=== PATIENT | male | born 1995 | race Two or more races ===

== ENCOUNTER → 2019-11-13 | Emergency (ER) | payer SELFPAY ==
[~2019-11-13] VITALS: Ht 170.2 cm; Wt 68.0 kg
[2019-11-13 13:23] VITALS: BP 120/75
== END | disposition left against medical advice (07) ==
LOC: ER 13:20
DX: M79.641 Pain in right hand (principal); Z53.21 Procedure and treatment not carried out due to patient leaving prior to being seen by health care provider

== ENCOUNTER 2019-11-15 15:35 | Emergency (ER) | payer SELFPAY ==
[~2019-11-15] VITALS: Ht 170.2 cm; Wt 72.6 kg
[2019-11-15 16:05] VITALS: BP 118/84
[2019-11-15] MEDS ORDERED: LIDOCAINE 1% HCL (LOCAL ANESTH.) INJ 20ML MDV IJ ONE (16:30)
== END 2019-11-15 16:34 | disposition home or self-care (01) ==
LOC: ER 15:35
DX: S60.521A Blister (nonthermal) of right hand, initial encounter (principal); F17.210 Nicotine dependence, cigarettes, uncomplicated; W57.XXXA Bitten or stung by nonvenomous insect and other nonvenomous arthropods, initial encounter; Y93.89 Activity, other specified; Y92.89 Other specified places as the place of occurrence of the external cause; Y99.8 Other external cause status
CPT/HCPCS: 10140; 99283; J2001

== ENCOUNTER 2019-11-15 23:53 | Emergency (ER) | payer SELFPAY ==
[~2019-11-15] VITALS: Ht 167.6 cm; Wt 66.2 kg
[2019-11-15 23:58] VITALS: BP 115/79
== END 2019-11-16 01:16 | disposition left against medical advice (07) ==
LOC: EDBD 23:53 → ER 23:53
DX: M79.643 Pain in unspecified hand (principal); Z53.21 Procedure and treatment not carried out due to patient leaving prior to being seen by health care provider